=== PATIENT | female | born 1975 | race Caucasian/White ===

== ENCOUNTER 2020-01-21 | Outpatient (REF) | payer MEDICAID, SELFPAY | END 2020-01-21 00:01 | disposition home or self-care (01) | LOC: HO.MDS | PROVIDERS: PCP Internal Medicine; Visit Provider Internal Medicine Medical Oncology | DX: D50.9 Iron deficiency anemia, unspecified (principal) | CPT/HCPCS: J2916 ==

== ENCOUNTER → 2020-01-26 08:12 | Outpatient (BNVA) | payer MEDICAID, SELFPAY | PROVIDERS: PCP Internal Medicine; Referring Provider Internal Medicine; Visit Provider Surgery | DX: E66.9 Obesity, unspecified (principal); Z68.34 Body mass index [BMI] 34.0-34.9, adult; Z71.3 Dietary counseling and surveillance | CPT/HCPCS: 99213 ==

== ENCOUNTER 2020-01-27 | Outpatient (REF) | payer MEDICAID, SELFPAY | END 2020-01-27 00:01 | disposition home or self-care (01) | LOC: HO.MDS | PROVIDERS: PCP Internal Medicine; Visit Provider Internal Medicine Medical Oncology | DX: D50.9 Iron deficiency anemia, unspecified (principal) | CPT/HCPCS: J2916 ==

== ENCOUNTER 2020-02-06 12:12 | Outpatient (REF) | payer MEDICAID, SELFPAY | END 2020-02-06 12:13 | disposition home or self-care (01) | LOC: HO.MDS 12:12 | PROVIDERS: PCP Internal Medicine; Visit Provider Internal Medicine Medical Oncology | DX: D50.9 Iron deficiency anemia, unspecified (principal) | CPT/HCPCS: 96365; J2916 ==

== ENCOUNTER 2020-02-12 11:56 | Outpatient (REF) | payer MEDICAID, SELFPAY ==
[2020-02-12 12:44] LABS: MANUAL DIFF FLAG NO
[2020-02-12 12:49] LABS: Basophils Percent Auto 0.2 % (0-2); Eosinophils Absolute Auto 0.1 X10*3/uL (0.0-0.4); Eosinophils Percent Auto 1.8 % (0-4); Hemoglobin 11.2 g/dl (12.0-16.0); Lymphocytes Absolute Auto 1.3 X10*3/uL (1.2-4.9); Mean Corpuscular HGB Conc 30.3 g/dl (31.0-35.0); Mean Corpuscular Hemoglobin 24.2 pg (27.0-33.0); Mean Corpuscular Volume 80.1 fL (80-98); Mean Platelet Volume 11.1 fL (9.4-12.3); Monocytes Absolute Auto 0.4 X10*3/uL (0.1-1.2); Monocytes Percent Auto 6.7 % (2-11); Neutrophils Absolute Auto 4.2 X10*3/uL (2.0-8.3); Neutrophils Percent Auto 70.3 % (45-73); Platelet Count 272 X10*3/uL (160-400); Red Blood Count 4.62 X10*6/uL (4.20-5.50); Red Cell Distribution Width 21.7 % (11.0-16.0)
[2020-02-12 13:08] LABS: Alanine Aminotransferase 25 U/L (0-31); Albumin Level 4.3 g/dL (3.5-5.0); Alkaline Phosphatase 48 U/L (39-117); Anion Gap 11 (12-20); Aspartate Amino Transferase 21 U/L (5-31); Bilirubin Total 0.5 mg/dL (0.0-1.0); Blood Urea Nitrogen 15 mg/dL (9-16); Calcium 9.2 mg/dL (8.4-10.2); Carbon Dioxide 28 mmol/L (22-29); Chloride 104 mmol/L (96-108); Estimated Glomerular Filt Rate > 60; Glucose Random 98 mg/dL (60-115); Sodium 138 mmol/L (135-145); Total Protein 6.9 g/dL (6.5-8.0)
[2020-02-12 13:28] LABS: Ferritin 116 ng/mL (10-250)
== END 2020-02-12 11:57 | disposition home or self-care (01) ==
LOC: HO.MDS 11:56
PROVIDERS: PCP Internal Medicine; Visit Provider Internal Medicine Medical Oncology
DX: D50.9 Iron deficiency anemia, unspecified (principal)
CPT/HCPCS: 36415; 80053; 82728; 85025; 96365; J2916

== ENCOUNTER → 2020-02-18 08:09 | Outpatient (BNVA) | payer MEDICAID, SELFPAY | PROVIDERS: PCP Internal Medicine; Referring Provider Internal Medicine; Visit Provider Surgery | DX: Z76.89 Persons encountering health services in other specified circumstances (principal) ==

== ENCOUNTER → 2020-03-15 08:36 | Outpatient (BNVA) | payer MEDICAID, SELFPAY | PROVIDERS: PCP Internal Medicine; Visit Provider Surgery | DX: Z76.89 Persons encountering health services in other specified circumstances (principal) ==

== ENCOUNTER → 2020-04-07 09:05 | Outpatient (BNVA) | payer MEDICAID, SELFPAY | PROVIDERS: PCP Internal Medicine; Visit Provider Surgery | DX: Z76.89 Persons encountering health services in other specified circumstances (principal) ==

== ENCOUNTER → 2023-11-27 13:54 | Outpatient (RCR) | payer MEDICAID, SELFPAY ==
[2020-01-13 13:42] VITALS: BP 126/73; PULSE 55; RESP 18; TEMP 36.4; O2SAT 99; BMI 35.2
[2020-01-13 14:32] LABS: MANUAL DIFF FLAG NO
[2020-01-13 14:35] LABS: Hematocrit 34.6 % (37-47); Hemoglobin 10.4 g/dl (12.0-16.0); Imm Gran Pct Auto 0.1 % (0.0-0.4); Lymphocytes Percent Auto 19.9 % (20-40); Mean Corpuscular HGB Conc 30.1 g/dl (31.0-35.0); Mean Corpuscular Hemoglobin 23.3 pg (27.0-33.0); Mean Corpuscular Volume 77.4 fL (80-98); Mean Platelet Volume 11.9 fL (9.4-12.3); Neutrophils Percent Auto 72.1 % (45-73); Platelet Count 305 X10*3/uL (160-400); Red Blood Count 4.47 X10*6/uL (4.20-5.50); Red Cell Distribution Width 20.7 % (11.0-16.0); White Blood Count 7.1 X10*3/uL (4.8-10.8)
[2020-01-13 14:36] LABS: Basophils Percent Auto 0.3 % (0-2); Eosinophils Absolute Auto 0.1 X10*3/uL (0.0-0.4); Imm Gran Abs Auto 0.01 X10*3/uL (0.00-0.03); Lymphocytes Absolute Auto 1.4 X10*3/uL (1.2-4.9); Monocytes Absolute Auto 0.5 X10*3/uL (0.1-1.2); Monocytes Percent Auto 6.6 % (2-11); Neutrophils Absolute Auto 5.1 X10*3/uL (2.0-8.3)
[2020-01-13 15:03] LABS: Alanine Aminotransferase 25 U/L (0-31); Albumin Level 4.4 g/dL (3.5-5.0); Alkaline Phosphatase 47 U/L (39-117); Anion Gap 11 (12-20); Aspartate Amino Transferase 20 U/L (5-31); Bilirubin Total 0.3 mg/dL (0.0-1.0); Blood Urea Nitrogen 12 mg/dL (9-16); Calcium 9.1 mg/dL (8.4-10.2); Carbon Dioxide 26 mmol/L (22-29); Chloride 106 mmol/L (96-108); Creatinine Clr Calc Pharmacy 100.7; Estimated Glomerular Filt Rate > 60; Glucose Random 92 mg/dL (60-115); Potassium 4.5 mmol/l (3.3-5.1); Sodium 138 mmol/L (135-145)
--- NOTE | 2020-01-13 16:37 | PM.HEMONCPN ---
Medical Summary - Medical Summary Chief complaint: follow-up for: multifactorial anemia. Medical Summary: DIAGNOSIS: MULTIFACTORIAL ANEMIA: 1. Iron deficiency. 2. B12 deficiency. Interval History Interval history: This is a pleasant 44-year-old lady, here for a follow-up visit. She tells me she has no major problems. Energy level is reasonable although sometimes she does feel rather tired. sometimes she is quite sleepy and sometimes not. She tends to get a heavy period. They occur monthly however last 7 days with passage of clots. Denies abdominal pain, nausea vomiting heartburn indigestion. Bowels are working without any gross blood in it. She enjoys a good appetite. She has gained weight. She denies any easy bruising nor systemic bleeding. She is in good spirits. Rest of the review of systems is unremarkable. She has been taking oral iron and oral vitamin B12. Review of Systems - Constitutional Reports system reviewed and no additional complaints, except as documented - Eyes Reports system reviewed and no additional complaints, except as documented - ENT Reports system reviewed and no additional complaints, except as documented - Cardiovascular Reports system reviewed and no additional complaints, except as documented - Gastrointestinal Reports system reviewed and no additional complaints, except as documented - Genitourinary Reports heavy periods PMFSH Medical History: Medical History (Last Updated 01/13/20 @ 14:20 by Maricruz Jacobs RN) Anxiety Arthritis Asthma delivery delivered Depression Hypertension Sleep apnea Smoking status: Former smoker Home Medications and Allergies Home Medications Medication Instructions Recorded Confirmed Type albuterol sulfate [ProAir HFA] INHALATION 01/13/20 01/13/20 History cyclobenzaprine 10 mg PO BEDTIME PRN 01/13/20 01/13/20 History ergocalciferol (vitamin D2) 1,250 mcg PO QWEEK 01/13/20 01/13/20 History [Vitamin D2] lisinopril 10 mg PO DAILY 01/13/20 01/13/20 History melatonin 5 mg PO BEDTIME PRN 01/13/20 01/13/20 History naproxen 500 mg PO BID PRN 01/13/20 01/13/20 History omeprazole 40 mg PO DAILY 01/13/20 01/13/20 History trazodone 100 mg PO BEDTIME 01/13/20 01/13/20 History Allergies Allergy/AdvReac Type Severity Reaction Status Date / Time ceftriaxone [From ROCEPHIN] Allergy Severe HIVE Verified 01/13/20 14:17 Rocephin Allergy Unknown hives Uncoded 01/13/20 14:17 Exam Vital signs: Vital Signs Temp 97.5 F 01/13/20 13:42 Pulse 55 01/13/20 13:42 Resp 18 01/13/20 13:42 BP 126/73 01/13/20 13:42 Pulse Ox 99 01/13/20 13:42 Intake & Output 01/12/20 01/13/20 01/13/20 18:59 06:59 18:59 Other: Weight 90.322 kg Weight 90.322 kg Body Mass Index 35.2 - Constitutional Present: no acute distress - Routine HEENT Exam Head: Present: normal inspection ENT: Present: mucous membranes moist - Routine Neck Exam Present: full ROM - Routine Respiratory Exam Present: CTAB - Routine Cardiovascular Exam Cardiovascular: Present: RRR, S1, S2 - Routine Abdominal Exam Present: soft, nontender - Routine Rectal Exam Patient deferred: digital exam Digital: Present: normal inspection - Routine Extremities Exam Present: nontender - Routine Neurological Exam Present: alert, oriented X3 - Routine Psychiatric Exam Present: normal affect Data - Labs CBC & Chem 7: 01/13/20 13:50 01/13/20 13:50 Labs: Laboratory Results - last 24 hr 01/13/20 01/13/20 13:50 13:50 WBC 7.1 RBC 4.47 Hgb 10.4 L Hct 34.6 L MCV 77.4 L MCH 23.3 L MCHC 30.1 L RDW 20.7 H Plt Count 305 MPV 11.9 Immature Gran % (Auto) 0.1 Neut % (Auto) 72.1 Lymph % (Auto) 19.9 L [place] % (Auto) 6.6 Eos % (Auto) 1.0 Baso % (Auto) 0.3 Lymph # (Auto) 1.4 [place] # (Auto) 0.5 Eos # (Auto) 0.1 Baso # (Auto) 0.0 Abs Immat Gran (auto) 0.01 Absolute Neuts (auto) 5.1 Absolute Nucleated RBC 0.000 Nucleated RBC % (auto) 0.0 Sodium 138 Potassium 4.5 Chloride 106 Carbon Dioxide 26 Anion Gap 11 L BUN 12 Creatinine 0.76 Estim Creat Clear Calc 100.7 Estimated GFR > 60 Random Glucose 92 Calcium 9.1 Total Bilirubin 0.3 AST 20 ALT 25 Alkaline Phosphatase 47 Total Protein 7.0 Albumin 4.4 Progress Note: A/P (1) Anemia Status: Acute Assessment and plan: This is a pleasant 44-year-old lady with Multifactorial Anemia. 1. Iron Deficiency. 2. B12 Deficiency. 3. Anemia of chronic disease. She can have nutritional deficiency or element of malabsorption. Concern is celiac disease versus pernicious anemia related to intrinsic factor antibody. I proceeded with further workup. l checked celiac profile: This came back normal. Checked intrinsic factor antibody: negative. She recently started taking oral iron. I advised her to take it twice a day, along with some vitamin-C. Her hemoglobin has improved however it has not normalized by any means. PLAN: I will arrange for IV iron: Ferrlecit weekly x4. Then recheck her CBC. She will continue on B12 orally. She will take folic acid 1 mg daily She will return in 3 months for a follow-up visit. Thank you, CC: Simin Lopez. - Time Spent With Patient Total time spent is greater than 50% in coordination of care (as documented) at patient's floor/unit and/or counseling patient: 25 - 35 minutes
== END | disposition home or self-care (01) ==
LOC: HO.ONC 01-13 13:29
PROVIDERS: PCP Internal Medicine; Visit Provider Internal Medicine Medical Oncology
DX: D50.9 Iron deficiency anemia, unspecified (principal); D51.9 Vitamin B12 deficiency anemia, unspecified; Z79.899 Other long term (current) drug therapy
CPT/HCPCS: 36415; 80053; 85025; 99214